=== PATIENT | male | born 1965 | race Caucasian/White ===

== ENCOUNTER → 2021-01-05 10:13 | Outpatient (BNVA) | payer OTHER, SELFPAY | PROVIDERS: Visit Provider Physician Assistant Medical | DX: S46.211A Strain of muscle, fascia and tendon of other parts of biceps, right arm, initial encounter (principal); X50.0XXA Overexertion from strenuous movement or load, initial encounter | CPT/HCPCS: 99203 ==

== ENCOUNTER → 2021-01-08 07:35 | Outpatient (BNVA) | payer OTHER, SELFPAY | PROVIDERS: Visit Provider Physician Assistant Medical | DX: S46.211A Strain of muscle, fascia and tendon of other parts of biceps, right arm, initial encounter (principal); X58.XXXA Exposure to other specified factors, initial encounter | CPT/HCPCS: 99213 ==

== ENCOUNTER 2023-09-02 15:04 | Outpatient (AMB) | payer OTHER, SELFPAY ==
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
[2023-09-02 15:18] VITALS: BP 113/63; PULSE 68; RESP 14; TEMP 37.2; O2SAT 97; BMI 35.7
== END 2023-09-02 16:32 | disposition home or self-care (01) ==
PROVIDERS: Visit Provider Physician Assistant Medical
DX: I25.2 Old myocardial infarction (principal); Z95.1 Presence of aortocoronary bypass graft; Z68.35 Body mass index [BMI] 35.0-35.9, adult; E66.9 Obesity, unspecified; E78.2 Mixed hyperlipidemia; I10 Essential (primary) hypertension
CPT/HCPCS: 99204

== ENCOUNTER 2023-12-08 15:06 | Outpatient (AMB) | payer OTHER, SELFPAY ==
--- NOTE | 2023-12-08 15:15 | A.OFFPC_ITS ---
Vital Signs 12/08/23 15:21 Height 5 ft 10.08 in Weight 260 lb 2 oz BMI 37.2 BP 116/86 Blood Pressure Location Rt brachial Position Sitting Pulse 68 Pulse Source Pulse Oximeter Pulse Oximetry (%) 96 Oxygen Delivery Method Room Air Intake Visit Reasons: med review Intake Note: Follow up. Just started the Lisinopril at 5mg yesterday. Allergies No Known Allergies Allergy (Unverified 11/08/19 18:43) Tobacco use date assessed: 09/02/23 Dental Screening Dental Screen Date: 09/02/23 HPI HPI Comments History of Present Illness Details This is a 58-year-old male with a past medical history of hyperlipidemia, hypertension, obesity and NSTEMI status post CABG x3 08/16/23 presenting to [facility] care. Accompanied by his , Louisa. The patient is doing better. He has increased endurance after cardiac rehab which he completed. He is working again on light duty. He had a follow up appointment on Tuesday with Dr. Suarez. His dose of lisinopril was increased from 2.5-5 mg daily. They are monitoring his blood pressure at home. He will go for labs next week following increasing this dosage. He had an echocardiogram this morning in is waiting on the results. Denies chest pain, shortness of breath or leg swelling. NSTEMI 08/16/2023: In the ED he was found to be hypertensive and tachycardic with EKG changes and positive cardiac markers. His catheterization showed significant CAD with total occlusion of RCA. Echo showed normal LVEF. On 08/15 patient underwent three-vessel CABG with the NORTON anastomosed to the LAD and saphenous vein grafts to the PDA and diagonal artery by Dr. Hernandez. He had no major postoperative complications. He is due to repeat his lipid profile on the statin. Hospital labs showed LDL 157, HDL 44, triglycerides 144. He is frustrated that he has not lost weight. He has been trying to modify his diet. He is walking the dog daily for exercise. Patient has never had a colonoscopy. Not eligible at this time because of recent cardiac event. In the future he would like to do a Cologuard, but it is deferred for now since if it is positive he will need a colonoscopy. He denies abdominal pain, diarrhea, unexplained weight loss or blood in stools. He declines flu vaccine and pneumonia vaccine. Not interested in shingles vaccine. ROS: Constitutional: No unexplained weight loss, fever, chills, fatigue or night sweats. Respiratory: No shortness of breath, cough or sputum production. Cardiovascular: No chest pain No palpitations or pedal edema. Gastrointestinal: No anorexia, nausea, vomiting or diarrhea. No abdominal pain or blood in stool. Neurologic: No headache or syncope Physical exam: Constitutional: Alert, in no distress. Neck: Supple, Full range of motion. No lymphadenopathy. Respiratory: Clear to auscultation. Cardiovascular: S1 S2 regular. No murmurs. Gastrointestinal: Abdomen soft, non-tender, non-distended. Normal bowel sounds. No palpable masses. Neurologic: No focal neurological deficits. Extremities: Warm and well perfused. No clubbing, cyanosis or edema. Psychiatric: Normal mood and affect [facility] Medical History (Updated 12/08/23 @ 16:46 by SUZETTE Bethea) Essential hypertension Mixed hyperlipidemia History of non-ST elevation myocardial infarction (NSTEMI) CAD (coronary artery disease), [place] coronary artery Obesity (BMI 30-39.9) Surgical History (Updated 09/02/23 @ 16:31 by SUZETTE Bethea) S/P CABG x 3 Family History (Updated 09/02/23 @ 15:57 by SUZETTE Bethea) Mother Atrial fibrillation CAD (coronary artery disease) Sister Hypertension Father Prostate cancer Social History (Updated 09/02/23 @ 15:17 by Elif Cristina CMA) Housing: House Patient Tobacco Use Status: Former Tobacco user Tobacco use type: Cigarette Cigarette Packs Per Day: 1 Years Smoked: 10 e-Cigarette/Vaping Use: Never Used Second Hand Smoke Exposure: No service: No Current occupational status: employed 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 1. Little interest or pleasure in doing things: not at all 2. Feeling down, depressed, or hopeless: not at all 3. Trouble falling or staying asleep, or sleeping too much: not at all 4. Feeling tired or having little energy: not at all 5. Poor appetite or overeating: not at all 6. Feeling bad about yourself - or that you are a failure or have let yourself or your family down: not at all 7. Trouble concentrating on things, such as reading the newspaper or watching television: not at all 8. Moving or speaking so slowly that other people could have noticed. Or the opposite - being so fidgety or restless that you have been moving around a lot more than usual: not at all 9. Thoughts that you would be better off or of hurting yourself in some way: not at all Total score: 0 Source: Developed by Drs. Waqas Holder, Nisha Salomon, Helio Huston and colleagues, with an educational elisa from [employer]. Thrive Questionnaire I am a: Patient What is your living situation today?: I have a steady place to live Within the past 12 months, did the food you bought not last and you didn't have the money to get more?: Never true Within the past 12 months, did you worry whether your food would run out before you got money to buy more?: Never true Do you have trouble paying for medicines?: No Do you have trouble getting transportation to medical appointments?: No Do you have trouble paying your heating and electricity bill?: No Do you have trouble taking care of your child, family member or friend?: No Do you have trouble with day-to-day activities such as bathing, preparing meals, shopping, managing finances, etc.?: No Are you currently unemployed and looking for a job?: No Are you interested in more education?: No Please select the resources that you would like help with: None Currently or been in a relationship where the following occur: No concerns reported THRIVE Score: 0 AUDIT C Alcohol Use Questionnaire (AUDIT-C) 1. How often do you have a drink containing alcohol?: 2-4 times a month Total Score: 2 ECTOR-7 AMB Questionnaire ECTOR-7 Feeling nervous, anxious, or on edge: 0 = Not at all Not being able to stop or control worryin = Not at all Worrying too much about different things: 0 = Not at all Trouble relaxin = Not at all Being so restless that it is hard to sit still: 0 = Not at all Becoming easily annoyed or irritable: 0 = Not at all Feeling afraid as if something awful might happen: 0 = Not at all Total ECTOR-7 score (0-4 normal; 5-9 mild; 10-14 moderate; 15-21 severe): 0 Source: Developed by Drs. Waqas Holder, Nisha Salomon, Helio Huston and colleagues, with an educational elisa from [employer]. Physical exam (Primary Care) Vital Signs: Last Vital Signs Pulse 68 12/08/23 15:21 BP 116/86 12/08/23 15:21 Pulse Ox 96 12/08/23 15:21 Oxygen Delivery Method Room Air 12/08/23 15:21 BMI result Body Mass Index 37.2 Tobacco/Smoking Status: Tobacco use Status Tobacco use date assessed 09/02/23 12/08/23 15:23 Patient Tobacco Use Status Former Tobacco user 12/08/23 15:23 Tobacco use type Cigarette 12/08/23 15:23 e-Cigarette/Vaping Use Never Used 12/08/23 15:23 PHQ-9: PHQ-9 Score PHQ-9: Total score 0 12/08/23 15:29 Currently or been in a relationship where the following occur: No concerns reported Coding Level of Care Code Est Pt Level 4 (60172) Complex EM visit Add On G2211 Diagnoses Coronary artery disease involving [place] coronary artery of [place] heart without angina pectoris I25.10 [place] vs. transplanted heart: [place] heart Associated angina: without angina History of non-ST elevation myocardial infarction (NSTEMI) I25.2 Mixed hyperlipidemia E78.2 Essential hypertension I10 Obesity (BMI 30-39.9) E66.9 Assessment & Plan Assessment & Plan (1) CAD (coronary artery disease), [place] coronary artery: Code(s): I25.10 - Atherosclerotic heart disease of [place] coronary artery without angina pectoris Category: Medical Qualifiers: [place] vs. transplanted heart: [place] heart Associated angina: without angina Qualified Code(s): I25.10 - Atherosclerotic heart disease of [place] coronary artery without angina pectoris (2) History of non-ST elevation myocardial infarction (NSTEMI): Code(s): I25.2 - Old myocardial infarction Category: Medical (3) Mixed hyperlipidemia: Code(s): E78.2 - Mixed hyperlipidemia Category: Medical (4) Essential hypertension: Code(s): I10 - Essential (primary) hypertension Category: Medical (5) Obesity (BMI 30-39.9): Code(s): E66.9 - Obesity, unspecified Category: Medical Plan Patient will continue his current medication regimen. Diastolic BP is above goal. They adjusted lisinopril this week. They will send me readings via the patient portal in a few weeks. Continue current medication regimen. He is going to [facility] for labs next week. Given printed orders for PSA and lipid profile. See hpi regarding vaccines including influenza vaccine which is recommended in patients with heart disease. We discussed his weight. Decrease portion sizes. Recommended continuing regular exercise and a low-carbohydrate diet like the [employer] diet or weight watchers. Declines referral to dietitian. We discussed GLP1 which he declines for now. Follow up in 6 months for physical exam.
[2023-12-08 15:21] VITALS: BP 116/86; PULSE 68; O2SAT 96; BMI 37.2
== END 2023-12-08 15:52 | disposition home or self-care (01) ==
PROVIDERS: Visit Provider Physician Assistant Medical
DX: I25.10 Atherosclerotic heart disease of native coronary artery without angina pectoris (principal); I25.2 Old myocardial infarction; E66.9 Obesity, unspecified; Z68.37 Body mass index [BMI] 37.0-37.9, adult; E78.2 Mixed hyperlipidemia; I10 Essential (primary) hypertension

== ENCOUNTER → 2023-12-08 15:06 | Outpatient (BNVA) | payer OTHER, SELFPAY | PROVIDERS: Visit Provider Physician Assistant Medical ==

== ENCOUNTER 2024-05-31 15:53 | Outpatient (AMB) | payer OTHER, SELFPAY ==
--- NOTE | 2024-05-31 16:01 | MHC.PC.OV ---
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 Accompanied by his , Louisa. CAD- NSTEMI 08/16/2023: In the ED he was found to be hypertensive and tachycardic with EKG changes and positive cardiac markers. His catheterization showed significant CAD with total occlusion of RCA. Echo showed normal LVEF. On 08/15 patient underwent three-vessel CABG with the NORTON anastomosed to the LAD and saphenous vein grafts to the PDA and diagonal artery by Dr. Hernandez. He had no major postoperative complications. Patient is now followed by Dr. Suarez. He has an upcoming appointment. He had an echocardiogram and we will review that with the rotary helper at the appointment because he did not get the results yet. Denies chest pain or shortness of breath. IFG-impaired fasting glucose on labs from November 2023. No history of diabetes. Blood sugar was 109. His blood pressure is suboptimal today. Patient is taking lisinopril 5 mg and metoprolol succinate ER 100 mg. He did have a cough when he up the dose of lisinopril from 2.5-5 mg. He started taking iron bisglycinate vit c 20 mg because they read that could help, and the cough went away. He is frustrated that he has not lost weight. He walks his dog daily for exercise. He started having a low carb dinner and a protein shake for lunch and did this for a month and did not lose any weight. DARLENE- tried using CPAP in the past some 10 or 20 years ago and did not tolerate it. I discussed DARLENE should be treated particularly because he has cardiac disease, but he declines sleep study or referrals at this time for management. He does want to lose weight. He declines colonoscopy. He has no family history of colon cancer. Cologuard ordered. The patient declines to discuss any vaccinations that are recommended for him. PSA was normal November 2023. ROS: Constitutional: No unexplained weight loss, fever, chills, fatigue or night sweats. Eyes: No vision changes, blurry vision, double vision, eye pain, eye redness, eye discharge. ENT: No hearing loss, sneezing, congestion, runny nose or sore throat. Respiratory: No shortness of breath, cough or sputum production. Cardiovascular: No chest pain, chest pressure or chest discomfort. No palpitations or pedal edema. Gastrointestinal: No anorexia, nausea, vomiting or diarrhea. No abdominal pain or blood in stool. Genitourinary: No dysuria, hematuria, urinary frequency. Neurologic: No headache, dizziness, syncope, unilateral weakness, ataxia, numbness or tingling in the extremities. Musculoskeletal: No muscle pain, back pain, joint pain or swelling. Hematologic/Lymphatics: No bleeding or bruising. No painful lymph nodes. Skin: No rash or itching. Endocrine: No cold or heat intolerance. No polyuria or polydipsia. Psychiatric: No depression or anxiety. No SI/HI. Physical exam: Constitutional: Alert, in no distress. Head: Normocephalic. Eyes: Pupils are equal, round and reactive to light. Extraocular muscles intact. Ear, Nose and Throat: Canals clear. TMs normal. Normal nasal mucosa. No nasal discharge. No oral lesions. Neck: Supple, Full range of motion. No lymphadenopathy. No palpable thyroid masses. Respiratory: Clear to auscultation. Cardiovascular: S1 S2 regular. No murmurs. No carotid bruits. Gastrointestinal: Abdomen soft, non-tender, non-distended. Normal bowel sounds. No palpable masses. Genitourinary: Exam deferred. Patient has home exam is done and denies masses, pain or changes to exam. Neurologic: No focal neurological deficits. Symmetric patellar reflexes. Moves all extremities spontaneously. Sensation intact bilaterally. Skin: No rashes Musculoskeletal: No gross deformities. Normal range of motion. Extremities: Warm and well perfused. No clubbing, cyanosis or edema. 3+ peripheral pulses bilaterally. Psychiatric: Normal mood and affect [facility] Medical History (Updated 05/31/24 @ 17:36 by SUZETTE Bethea) Routine physical examination IFG (impaired fasting glucose) Essential hypertension Mixed hyperlipidemia History of non-ST elevation myocardial infarction (NSTEMI) CAD (coronary artery disease), [place] coronary artery Obesity (BMI 30-39.9) Surgical History (Updated 09/02/23 @ 16:31 by SUZETTE Bethea) S/P CABG x 3 Family History (Updated 09/02/23 @ 15:57 by SUZETTE Bethea) Mother Atrial fibrillation CAD (coronary artery disease) Sister Hypertension Father Prostate cancer Social History (Updated 09/02/23 @ 15:17 by Elif Cristina CMA) Housing: House Patient Tobacco Use Status: Former Tobacco user Tobacco use type: Cigarette Cigarette Packs Per Day: 1 Years Smoked: 10 e-Cigarette/Vaping Use: Never Used Second Hand Smoke Exposure: No service: No Current occupational status: employed 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 1. Little interest or pleasure in doing things: not at all 2. Feeling down, depressed, or hopeless: not at all 3. Trouble falling or staying asleep, or sleeping too much: not at all 4. Feeling tired or having little energy: not at all 5. Poor appetite or overeating: not at all 6. Feeling bad about yourself - or that you are a failure or have let yourself or your family down: not at all 7. Trouble concentrating on things, such as reading the newspaper or watching television: not at all 8. Moving or speaking so slowly that other people could have noticed. Or the opposite - being so fidgety or restless that you have been moving around a lot more than usual: not at all 9. Thoughts that you would be better off or of hurting yourself in some way: not at all Total score: 0 Depression Screening Interpretation: Negative Depression Screening Done: Yes 46291 - PHQ-9 Billing: Yes Source: Developed by Drs. Waqas Holder, Nisha Salomon, Helio Huston and colleagues, with an educational elisa from [employer]. Thrive Questionnaire Date Thrive assessed: 05/31/24 I am a: Patient What is your living situation today?: I have a steady place to live Within the past 12 months, did the food you bought not last and you didn't have the money to get more?: Never true Within the past 12 months, did you worry whether your food would run out before you got money to buy more?: Never true Do you have trouble paying for medicines?: No Do you have trouble getting transportation to medical appointments?: No Do you have trouble paying your heating and electricity bill?: No Do you have trouble taking care of your child, family member or friend?: No Do you have trouble with day-to-day activities such as bathing, preparing meals, shopping, managing finances, etc.?: No Are you currently unemployed and looking for a job?: No Are you interested in more education?: No Please select the resources that you would like help with: None Currently or been in a relationship where the following occur: No concerns reported THRIVE Score: 0 AUDIT C Alcohol Use Questionnaire (AUDIT-C) 1. How often do you have a drink containing alcohol?: 2-4 times a month 2. How many drinks containing alcohol do you have on a typical day when you are drinking?: 3 or 4 3. How often do you have six or more drinks on one occasion?: Less than monthly Total Score: 4 Score Reviewed/Action Taken: Yes ECTOR-7 AMB Questionnaire ECTOR-7 Date ECTOR - 7 assessed: 05/31/24 Feeling nervous, anxious, or on edge: 0 = Not at all Not being able to stop or control worryin = Not at all Worrying too much about different things: 0 = Not at all Trouble relaxin = Not at all Being so restless that it is hard to sit still: 0 = Not at all Becoming easily annoyed or irritable: 0 = Not at all Feeling afraid as if something awful might happen: 0 = Not at all Total ECTOR-7 score (0-4 normal; 5-9 mild; 10-14 moderate; 15-21 severe): 0 Source: Developed by Drs. Waqas Holder, Nisha Salomon, Helio Huston and colleagues, with an educational elisa from [employer]. ECTOR-7 Assessment Billing ECTOR-7 Assessment Tool: ECTOR-7 Assessment 70695 Physical exam (Primary Care) Vital Signs: Last Vital Signs Temp 97.8 F 05/31/24 16:06 Pulse 68 05/31/24 16:06 Resp 16 05/31/24 16:06 BP 133/72 05/31/24 16:06 Pulse Ox 97 05/31/24 16:06 Oxygen Delivery Method Room Air 05/31/24 16:06 BMI result Body Mass Index 37.0 Tobacco/Smoking Status: Tobacco use Status Tobacco use date assessed 05/31/24 05/31/24 16:06 Patient Tobacco Use Status Former Tobacco user 05/31/24 16:06 Tobacco use type Cigarette 05/31/24 16:06 e-Cigarette/Vaping Use Never Used 05/31/24 16:06 PHQ-9: PHQ-9 Score PHQ-9: Total score 0 05/31/24 16:42 Depression Screening Interpretation: Negative Thrive Assessment: Date of Thrive Assessment Date Thrive assessed 05/31/24 05/31/24 16:06 Currently or been in a relationship where the following occur: No concerns reported Coding Level of Care Code Est Pt Prev Care 40-64y(53964) Diagnoses Routine physical examination Z00.00 Obesity (BMI 30-39.9) E66.9 Coronary artery disease involving [place] coronary artery of [place] heart without angina pectoris I25.10 [place] vs. transplanted heart: [place] heart Associated angina: without angina Mixed hyperlipidemia E78.2 Essential hypertension I10 IFG (impaired fasting glucose) R73.01 Additional Codes ECTOR-7 Assessment Billing - ECTOR-7 Assessment Tool: ECTOR-7 Assessment 32295 ([id number]) PHQ-9 - 22854 - PHQ-9 Billing: Yes ([id number]) Assessment & Plan Assessment & Plan (1) Routine physical examination: Code(s): Z00.00 - Encounter for general adult medical examination without abnormal findings Category: Medical (2) Obesity (BMI 30-39.9): Code(s): E66.9 - Obesity, unspecified Category: Medical (3) CAD (coronary artery disease), [place] coronary artery: Code(s): I25.10 - Atherosclerotic heart disease of [place] coronary artery without angina pectoris Category: Medical Qualifiers: [place] vs. transplanted heart: [place] heart Associated angina: without angina Qualified Code(s): I25.10 - Atherosclerotic heart disease of [place] coronary artery without angina pectoris (4) Mixed hyperlipidemia: Code(s): E78.2 - Mixed hyperlipidemia Category: Medical (5) Essential hypertension: Code(s): I10 - Essential (primary) hypertension Category: Medical (6) IFG (impaired fasting glucose): Code(s): R73.01 - Impaired fasting glucose Category: Medical Plan Patient is seen today for a routine physical. As part of this visit we reviewed the following issues, which are considered and essential part of preventative health in this age group: - Nutritional and exercise counseling - Counseling of injury prevention including fire prevention, smoke alarms and seat belt usage - Screening for depression - Education about skin cancer - Recommendations about immunizations - Recommendation of an eye exam - Screening for substance abuse Patient will continue his current medications. We discussed blood pressure is suboptimal. They will check home readings and submit them over the portal. If blood pressures remain above goal consider switching lisinopril to losartan since he did experience cough initially with lisinopril which I believe would come back if we increase the dose. We discussed sleep apnea, but he does not want repeat sleep study or management at this time. Recommended avoidance of alcohol. Continue efforts at weight loss including low-carbohydrate diet and regular exercise. GLP 1 is medically necessary. He is obese with hypertension, hyperlipidemia, coronary artery disease and obstructive sleep apnea and evidence of insulin resistance with impaired fasting glucose. Lifestyle modifications alone did not result in any weight loss. We will check hemoglobin A1c. Patient advised to call insurance and see if they cover Wegovy or Zepbound. We discussed contraindications which he denies, we discussed administration and side effects. He will have blood work done, and we will touch base about prescribing this medication again when I have the results. Declined nutrition consult. Follow up in 3 months. Orders: Orders Comprehensive Met. Panel Today E78.2 - Mixed hyperlipidemia, I25.10 - Atherosclerotic heart disease of [place] coronary artery without angina pectoris, R73.01 - Impaired fasting glucose Lipid Panel Today E78.2 - Mixed hyperlipidemia, E78.5 - Hyperlipidemia, unspecified, I25.10 - Atherosclerotic heart disease of [place] coronary artery without angina pectoris, R73.01 - Impaired fasting glucose Complete Blood Count no Diff Today E78.2 - Mixed hyperlipidemia, I25.10 - Atherosclerotic heart disease of [place] coronary artery without angina pectoris, R73.01 - Impaired fasting glucose Hemoglobin A1c Today E11.9 - Type 2 diabetes mellitus without complications, E78.2 - Mixed hyperlipidemia, I25.10 - Atherosclerotic heart disease of [place] coronary artery without angina pectoris, R73.01 - Impaired fasting glucose Referrals Cologuard Test Z12.11 - Encounter for screening for malignant neoplasm of colon
[2024-05-31 16:06] VITALS: BP 133/72; PULSE 68; RESP 16; TEMP 36.6; O2SAT 97; BMI 37.0
== END 2024-05-31 17:08 | disposition home or self-care (01) ==
LOC: HO.HMCFM 15:54
PROVIDERS: PCP Physician Assistant Medical; Visit Provider Physician Assistant Medical
DX: Z00.00 Encounter for general adult medical examination without abnormal findings (principal); E66.9 Obesity, unspecified; Z68.37 Body mass index [BMI] 37.0-37.9, adult; I25.10 Atherosclerotic heart disease of native coronary artery without angina pectoris; E78.2 Mixed hyperlipidemia; I10 Essential (primary) hypertension; R73.01 Impaired fasting glucose

== ENCOUNTER → 2024-05-31 15:53 | Outpatient (BNVA) | payer OTHER, SELFPAY | PROVIDERS: PCP Physician Assistant Medical; Visit Provider Physician Assistant Medical | DX: Z00.00 Encounter for general adult medical examination without abnormal findings (principal); E66.9 Obesity, unspecified; I25.10 Atherosclerotic heart disease of native coronary artery without angina pectoris; E78.2 Mixed hyperlipidemia; I10 Essential (primary) hypertension; R73.01 Impaired fasting glucose | CPT/HCPCS: 96127 ==

== ENCOUNTER 2024-06-01 08:02 | Outpatient (REF) | payer OTHER, SELFPAY ==
[2024-06-01 10:45] LABS: Hematocrit 42.4 % (42.0-52.0); Hemoglobin 14.5 g/dl (14.0-18.0); Mean Corpuscular HGB Conc 34.2 g/dl (31.0-36.0); Mean Corpuscular Hemoglobin 29.2 pg (27.0-33.0); Mean Corpuscular Volume 85.5 fL (80.0-98.0); Mean Platelet Volume 9.5 fL (9.4-12.4); Platelet Count 249 X10*3/uL (160-400); Red Blood Count 4.96 X10*6/uL (4.60-5.80); White Blood Count 5.5 X10*3/uL (4.8-10.8)
[2024-06-01 10:54] LABS: Estimated Average Glucose 120 mg/dL; Hemoglobin A1C 152.6223 umol/L; Hemoglobin A1c % 5.8 % (<6.0); Total Hemoglobin (HGBA1C) 3839.4208 umol/L
[2024-06-01 11:11] LABS: Albumin Level 3.9 g/dL (3.5-5.0); Alkaline Phosphatase 81 U/L (39-117); Anion Gap 9 (12-20); Aspartate Amino Transferase 24 U/L (5-37); Bilirubin Total 0.5 mg/dL (0.0-1.0); Blood Urea Nitrogen 19 mg/dL (9-16); Calcium 8.9 mg/dL (8.4-10.2); Carbon Dioxide 24 mmol/L (22-29); Chloride 112 mmol/L (96-108); Cholesterol 137 mg/dL (<200); Estimated Glomerular Filt Rate > 60; Glucose Random 117 mg/dL (60-115); HDL Cholesterol 40 mg/dL (>40); LDL Cholesterol Calculated 79 mg/dL (<100); Sodium 141 mmol/L (135-145); Total Protein 6.3 g/dL (6.5-8.0); Triglycerides 92 mg/dL (<150)
[2024-06-01 11:21] LABS: Alanine Aminotransferase 32 U/L (0-40)
== END 2024-06-01 08:03 | disposition home or self-care (01) ==
LOC: HO.HMGCLDS 08:02
PROVIDERS: PCP Physician Assistant Medical; Visit Provider Physician Assistant Medical
DX: E11.9 Type 2 diabetes mellitus without complications (principal); R73.01 Impaired fasting glucose; E78.2 Mixed hyperlipidemia; I25.10 Atherosclerotic heart disease of native coronary artery without angina pectoris; E78.5 Hyperlipidemia, unspecified
CPT/HCPCS: 36415; 80053; 80061; 83036; 85027

== ENCOUNTER 2024-10-04 15:19 | Outpatient (AMB) | payer OTHER, SELFPAY ==
--- NOTE | 2024-10-04 15:44 | A.OFFPC_ITS ---
Vital Signs 10/04/24 15:49 Height 5 ft 8.1 in Weight 265 lb BMI 40.2 BP 112/76 Blood Pressure Location Lt brachial Position Sitting Respiration 16 Pulse 86 Pulse Source Pulse Oximeter Temp 98.4 F Temp Source Temporal Artery Scan Pulse Oximetry (%) 96 Oxygen Delivery Method Room Air Intake Visit Reasons: follow up Intake Note: Eber presents in the office for a follow up. Allergies No Known Allergies Allergy (Verified 10/04/24 15:46) Medication List - Last Reconciled 10/04/24 by SUZETTE Bethea aspirin 81 mg PO DAILY atorvastatin 80 mg PO DAILY lisinopril 10 mg PO DAILY metoprolol succinate ER 100 mg PO DAILY multivitamin 1 tab PO DAILY Tobacco use date assessed: 10/04/24 Dental Screening Dental Screen Date: 10/04/24 Did you have a dental visit in the last 12 months?: Yes Did you have a dental problem in the last 6 months where you did not have access to dental care?: No Was dental information given to patient?: Patient has dentist HPI HPI Comments History of Present Illness Details This is a 59-year-old male with a past medical history of hyperlipidemia, hypertension, obesity and NSTEMI status post CABG x3 08/16/23 presenting for follow up. Accompanied by his , Louisa. CAD- NSTEMI 08/16/2023: In the ED he was found to be hypertensive and tachycardic with EKG changes and positive cardiac markers. His catheterization showed significant CAD with total occlusion of RCA. Echo showed normal LVEF. On 08/15 patient underwent three-vessel CABG with the NORTON anastomosed to the LAD and saphenous vein grafts to the PDA and diagonal artery by Dr. Hernandez. He had no major postoperative complications. He saw Dr. Suarez in June. IFG-impaired fasting glucose on labs from November 2023. No history of diabetes. His blood pressure is normal. Blood sugar was 109. Patient is taking lisinopril 10 mg and metoprolol succinate ER 100 mg. He is frustrated that he has not lost weight. He walks his dog daily for exercise. He started having a low carb dinner and a protein shake for lunch and did this for a month and did not lose any weight. [facility] did not cover GLP1, but he is switching insurance in a couple months. He will contact me to r esubmit the Rx when he does. Previously discussed: DARLENE- tried using CPAP in the past some 10 or 20 years ago and did not tolerate it. I discussed DARLENE should be treated particularly because he has cardiac disease, but he declines sleep study or referrals at this time for management. He does want to lose weight. Negative Cologuard June 2024. ROS: Constitutional: No unexplained weight loss, fever, chills, fatigue or night sweats. Respiratory: No shortness of breath, cough or sputum production. Cardiovascular: No chest pain, chest pressure or chest discomfort. No palpitations or pedal edema. Neurologic: No headache, dizziness, syncope Endocrine: No cold or heat intolerance. No polyuria or polydipsia. Physical exam: Constitutional: Alert, in no distress. Neck: Supple, Full range of motion. No lymphadenopathy. No palpable thyroid masses. Respiratory: Clear to auscultation. Cardiovascular: S1 S2 regular. No murmurs. No carotid bruits. Extremities: Warm and well perfused. No clubbing or cyanosis. 1+ bilateral pretibial edema. Psychiatric: Normal mood and affect [facility] Medical History (Updated 06/05/24 @ 14:05 by SUZETTE Bethea) Prediabetes Routine physical examination IFG (impaired fasting glucose) Essential hypertension Mixed hyperlipidemia History of non-ST elevation myocardial infarction (NSTEMI) CAD (coronary artery disease), [place] coronary artery Obesity (BMI 30-39.9) Surgical History (Updated 09/02/23 @ 16:31 by SUZETTE Bethea) S/P CABG x 3 Family History (Updated 10/04/24 @ 15:49 by Abigail Demarco MA) Mother Atrial fibrillation CAD (coronary artery disease) Sister Hypertension Father Prostate cancer Social History (Updated 10/04/24 @ 15:49 by Abigail Demarco MA) Housing: House Alcohol intake: current Patient Tobacco Use Status: Former Tobacco user Tobacco use type: Cigarette Cigarette Packs Per Day: 1 Years Smoked: 10 e-Cigarette/Vaping Use: Never Used Second Hand Smoke Exposure: No service: No Current occupational status: employed 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 occupational exposures/hazards: Yes (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, chemicals) Cognitive needs: No Hearing needs: No Vision needs: Yes (glasses/contacts) Questionnaire Thrive Questionnaire Date Thrive assessed: 05/24/24 I am a: Patient What is your living situation today?: I have a steady place to live Within the past 12 months, did the food you bought not last and you didn't have the money to get more?: Never true Within the past 12 months, did you worry whether your food would run out before you got money to buy more?: Never true Do you have trouble paying for medicines?: No Do you have trouble getting transportation to medical appointments?: No Do you have trouble paying your heating and electricity bill?: No Do you have trouble taking care of your child, family member or friend?: No Do you have trouble with day-to-day activities such as bathing, preparing meals, shopping, managing finances, etc.?: No Are you currently unemployed and looking for a job?: No Are you interested in more education?: No Please select the resources that you would like help with: None Currently or been in a relationship where the following occur: No concerns reported THRIVE Score: 0 ECTOR-7 AMB Questionnaire ECTOR-7 Date ECTOR - 7 assessed: 05/31/24 Source: Developed by Drs. Waqas Holder, Nisha Salomon, Helio Huston and colleagues, with an educational elisa from [employer]. Physical exam (Primary Care) Vital Signs: Last Vital Signs Temp 98.4 F 10/04/24 15:49 Pulse 86 10/04/24 15:49 Resp 16 10/04/24 15:49 BP 112/76 10/04/24 15:49 Pulse Ox 96 10/04/24 15:49 Oxygen Delivery Method Room Air 10/04/24 15:49 BMI result Body Mass Index 40.2 Tobacco/Smoking Status: Tobacco use Status Tobacco use date assessed 10/04/24 10/04/24 15:52 Patient Tobacco Use Status Former Tobacco user 10/04/24 15:49 Tobacco use type Cigarette 10/04/24 15:49 e-Cigarette/Vaping Use Never Used 10/04/24 15:49 Thrive Assessment: Date of Thrive Assessment Date Thrive assessed 05/24/24 10/04/24 15:45 Currently or been in a relationship where the following occur: No concerns reported Results Reviewed Results Reviewed: [facility] 08/22/24: 101 glucose CR 1.13 GFR 76 Coding Level of Care Code Est Pt Level 4 (00825) Complex EM visit Add On G2211 Diagnoses Obesity (BMI 30-39.9) E66.9 Coronary artery disease involving [place] coronary artery of [place] heart without angina pectoris I25.10 Associated angina: without angina [place] vs. transplanted heart: [place] heart Mixed hyperlipidemia E78.2 Essential hypertension I10 IFG (impaired fasting glucose) R73.01 Assessment & Plan Assessment & Plan (1) Obesity (BMI 30-39.9): Code(s): E66.9 - Obesity, unspecified Category: Medical (2) CAD (coronary artery disease), [place] coronary artery: Code(s): I25.10 - Atherosclerotic heart disease of [place] coronary artery without angina pectoris Category: Medical Qualifiers: Associated angina: without angina [place] vs. transplanted heart: [place] heart Qualified Code(s): I25.10 - Atherosclerotic heart disease of [place] coronary artery without angina pectoris (3) Mixed hyperlipidemia: Code(s): E78.2 - Mixed hyperlipidemia Category: Medical (4) Essential hypertension: Code(s): I10 - Essential (primary) hypertension Category: Medical (5) IFG (impaired fasting glucose): Code(s): R73.01 - Impaired fasting glucose Category: Medical Plan Patient will continue his current medications. Recommended avoidance of alcohol. Continue efforts at weight loss including low-carbohydrate diet and regular exercise. Weight loss med would help, but current insurance does not cover GLP 1, and he is not a candidant for phentermine given his history of CVD. Declined nutrition consult. Follow up in 3 months.
[2024-10-04 15:49] VITALS: BP 112/76; PULSE 86; RESP 16; TEMP 36.9; O2SAT 96; BMI 40.2
== END 2024-10-04 16:14 | disposition home or self-care (01) ==
LOC: HO.HMCFM 15:20
PROVIDERS: PCP Physician Assistant Medical; Visit Provider Physician Assistant Medical
DX: I25.10 Atherosclerotic heart disease of native coronary artery without angina pectoris (principal); E66.9 Obesity, unspecified; Z68.41 Body mass index [BMI] 40.0-44.9, adult; E78.2 Mixed hyperlipidemia; I10 Essential (primary) hypertension; R73.01 Impaired fasting glucose